=== PATIENT | female | born 1945 | race Caucasian/White ===

== ENCOUNTER 2019-10-01 11:49 | Outpatient (CLI) | payer MEDICARE, SELFPAY ==
--- NOTE | 2019-10-01 12:32 | ECG_ITS ---
Measurements Intervals [place] Rate: 93 P: 50 MN: 154 QRS: -28 QRSD: 87 T: 9 QT: 341 QTc: 424 Interpretive Statements SINUS RHYTHM BORDERLINE R WAVE PROGRESSION, ANTERIOR LEADS BORDERLINE T WAVE ABNORMALITY- ANT/INF LEADS BASELINE ARTIFACT- I, III, AVR, AVL, AVF BORDERLINE ECG Electronically Signed On 10-01-2019 12:57:26 CDT by Jose Antonio Yun D.O.
[2019-10-01 13:02] LABS: Basophils Absolute Auto 0.1 K/mm3 (0.0-0.1); Basophils Percent Auto 1.1 % (0.2-1.2); Eosinophils Absolute Auto 0.4 K/mm3 (0-0.3); Eosinophils Percent Auto 4.9 % (0-4.4); Hematocrit 40.6 % (37.0-47.0); Hemoglobin 13.9 g/dL (12.0-15.0); Immature Granulocyte Absolute 0.02 K/mm3 (0.00-0.031); Immature Granulocyte Percent A 0.2 % (0-0.5); Lymphocytes Absolute Auto 3.83 K/mm3 (0.9-3.2); Lymphocytes Percent Auto 43.9 % (18.3-44.2); Mean Corpuscular HGB Conc 34.2 g/dl (32-36); Mean Corpuscular Hemoglobin 30.4 pg (26-34); Mean Corpuscular Volume 88.8 fl (80-100); Mean Platelet Volume 9.4 fl (7.4-10.4); Monocytes Absolute Auto 0.6 K/mm3 (0.1-0.6); Monocytes Percent Auto 6.9 % (2.6-8.5); Neutrophils Absolute Auto 3.8 K/mm3 (1.3-6.7); Platelet Count Result 377 k/mm3 (150-375); Red Blood Count 4.57 M/mm3 (4.2-5.4); White Blood Count 8.7 K/mm3 (4.5-10.0)
[2019-10-01 13:16] LABS: Alanine Aminotransferase 16 U/L (4-35); Albumin Level 4.7 g/dL (3.5-5.1); Alkaline Phosphatase 123 U/L (38-126); Aspartate Amino Transferase 27 U/L (14-36); Bilirubin,Total 0.4 mg/dL (0.2-1.3); Blood Urea Nitrogen 10 mg/dL (7-17); Calcium 9.5 mg/dL (8.4-10.2); Carbon Dioxide 27 mmol/L (22-30); Chloride 106 mmol/L (98-107); Estimated Glomerular Filt Rate > 60; Glucose 97 mg/dL (65-105); Potassium 4.5 mmol/L (3.4-5.0); Sodium 140 mmol/L (137-145)
[2019-10-01 13:22] LABS: Prothrombin Time 12.8 Seconds (11.1-14.7)
[2019-10-01 13:23] LABS: Partial Thromboplastin Time 25.8 SECONDS (22.3-36.8)
== END 2019-10-01 11:50 | disposition home or self-care (01) ==
LOC: ANHSURGERY 11:51
PROVIDERS: PCP Family Medicine; Visit Provider Urology
DX: N81.3 Complete uterovaginal prolapse (principal); Z98.890 Other specified postprocedural states; Z79.899 Other long term (current) drug therapy; R94.31 Abnormal electrocardiogram [ECG] [EKG]; Z79.82 Long term (current) use of aspirin
CPT/HCPCS: 36415; 80053; 85025; 85610; 85730; 86850; 86900; 86901; 87077; 87086; 87088; 87186; 93005

== ENCOUNTER 2019-10-08 00:10 | Outpatient (CLI) | payer MEDICARE, SELFPAY ==
[2019-10-08 15:54] LABS: SARS-CoV-2 RNA PCR Negative
== END 2019-10-08 00:11 | disposition home or self-care (01) ==
LOC: ANHCOVIDDT 00:11
PROVIDERS: PCP Family Medicine; Visit Provider Urology
DX: Z01.812 Encounter for preprocedural laboratory examination (principal); Z20.828 Contact with and (suspected) exposure to other viral communicable diseases
CPT/HCPCS: 87635; C9803; U0003

== ENCOUNTER 2019-10-11 03:33 | Day surgery (SDC) | payer MEDICARE, SELFPAY ==
[2019-10-01 12:09] VITALS: BP 144/90; PULSE 100; RESP 20; TEMP 36.8; O2SAT 100; BMI 26.9
[2019-10-11] VITALS (15 sets, daily range): BP systolic 93–132; BP diastolic 41–81; PULSE 72–112; RESP 12–18; TEMP 36–36.8; O2SAT 95–100
--- NOTE | 2019-10-11 06:42 | PM.IMHP ---
H&P: HPI History of Present Illness Chief complaint: Stress Incontinence/ Uterine Prolapse Narrative: Jewell Lamar is a 73 year old female with known uterine prolapse which started worsening last year. She declines pessary. She has been evaluated by Dr. Coughlin. She agrees with supracervical hysterectomy with bilateral salpingectomy via davince assisted laparoscopy. Review of Systems Review of Systems: All systems reviewed & are unremarkable except as noted in HPI and below Constitutional: Constitutional: Reports no additional constitutional complaints Eyes: Eyes: Reports no additional eye complaints ENT: Reports Normal hearing present Cardiovascular: Cardiovascular: Denies chest pain and Denies dyspnea Respiratory: Respiratory: Reports no additional respiratory complaints, Reports cough, Denies dyspnea and Reports other Gastrointestinal: Gastrointestinal: Denies abdominal pain Genitourinary: Genitourinary: Reports no additional female genitourinary complaints and Reports as per HPI Psychiatric: Psychiatric: Reports no additional psychiatric complaints Endocrine: Endocrine: Reports no additional endocrine complaints Hematologic/Lymphatic: Hematologic/Lymphatic: Reports no additional hematologic/lymphatic complaints [facility] Past Medical History Medical History Pneumonia Procidentia of uterus Surgical History Surgical History H/O bilateral breast reduction surgery [facility] teeth removed Family History Family History Mother Cerebrovascular accident Grandparent Family history of malignant neoplasm Family history of lung cancer Social History Social History Smoking status: Never smoker Alcohol intake: current Meds Home Medications and Allergies Home Medications Medication Instructions Recorded Confirmed Type aspirin 81 mg tablet,delayed 81 mg PO DAILY 03/23/19 10/01/19 History release ibuprofen 200 mg PO Q6H PRN 10/01/19 10/01/19 History docusate sodium [Colace] 100 mg PO BID #60 cap 10/11/19 Rx hydrocodone-acetaminophen [[place]] 1 tablet PO Q4H PRN #20 tablet 10/11/19 Rx Allergies Allergy/AdvReac Type Severity Reaction Status Date / Time No Known Allergies Allergy Verified 10/11/19 11:22 Exam Const: General: healthy appearing, no acute distress, alert and awake Nutritional Appearance: well nourished Orientation/consciousness: oriented to person, oriented to place, oriented to time and patient oriented x3 HENMT: Head: normal to inspection Ears: hearing grossly normal bilaterally Eyes: General: appearance normal, both eyes and all related structures Neck: Neck: normal visual inspection Resp: Effort & Inspection: normal respiratory effort and other Auscultation: clear to auscultation bilaterally Cardio: Rate: regular rate Rhythm: regular rhythm GI: Inspection: normal to inspection GI Palp: Yes No hepatosplenomegaly present Rectal Exam: visual inspection normal : External Female Exam: normal external appearance and normal appearance of the urethra Speculum Exam - Vagina: other (cervix descends to introitus) Speculum Exam - Cervix: nontender Bimanual exam- vagina & uterus: normal bimanual exam, uterine size normal, bladder normal to palpation, consistency normal, non-tender and no cervical motion tenderness Bimanual Exam- Adnexa, other: no masses, normal and No adnexal tenderness OB/external & speculum: external exam normal Skin: General skin exam: normal color Neuro: General: oriented to person, oriented to place, oriented to time and patient oriented x3 Cranial nerves: Yes Normal hearing present Extrem: General: normal to inspection Psych: Appearance: grossly normal Mental Status: mental status grossly normal Attitude: cooperative Assessme
--- NOTE | 2019-10-11 07:22 | WPDHPUPDATE1 ---
History and Physical Update Update Date/Time: 10/11/19 07:22 History and Physical has been reviewed, including an updated exam of the patient. There are NO changes in the patient's condition. Risks, benefits, and alternatives have been discussed and questions answered. Patient agrees to proceed with procedure.
--- NOTE | 2019-10-11 10:51 | WPDANESEPPF ---
Anes - Initial Pre Proc Eval Procedure: Operation Date: 10/11/19 12:00 Proposed Procedures p Robotic Sacrocolpopexy, Urethral Sling - Pepe Coughlin MD s Robotic Assisted Supracervical Hysterectomy With Bilateral Salpingo-Oophorectomy - Benjamin Kumar MD Date/Time: 10/11/19 10:51 Surgeon: Pepe Coughlin MD Pre Op Diagnosis: Stress Incontinence/ Uterine Prolapse Patient Data Age: 73 Gender: F Height: 5 ft 1.5 in Weight: 65.6 kg Last Vital Signs Temp 36.8 C 10/01/19 12:09 Pulse 100 10/01/19 12:09 Resp 20 10/01/19 12:09 BP 144/90 H 10/01/19 12:09 Pulse Ox 100 10/01/19 12:09 Allergies Allergy/AdvReac Type Severity Reaction Status Date / Time No Known Allergies Allergy Verified 10/01/19 12:05 Home Medications Medication Instructions Recorded Confirmed Type aspirin 81 mg tablet,delayed 81 mg PO DAILY 03/23/19 10/01/19 History release ibuprofen 200 mg PO Q6H PRN 10/01/19 10/01/19 History Patient hx anesthesia problems: none Family hx anesthesia problems: none PMFSH Past Medical History Medical History Pneumonia Procidentia of uterus Surgical History Surgical History H/O bilateral breast reduction surgery [place] teeth removed Family History Family History Mother Cerebrovascular accident Grandparent Family history of malignant neoplasm Family history of lung cancer Social History Social History Smoking status: Never smoker Alcohol intake: current Anes - Eval Final PreProcedure Day of Procedure 10/11/19 10:51 Patient weight: overweight Heart: regular rate and rhythm Lungs: clear to auscultation Airway: Mallampati scale class II Neurological: alert and oriented Last oral intake: >/= 8 hours ASA classification: II Emergent: no Anesthetic plan: proceed Anesthesia type and monitoring: general ETT and standard monitoring Informed Consent: The patient's anesthetic plan and its attendant risks and benefits were discussed with the patient/family/POA. Questions were solicited and answers provided to the satisfaction of the patient/family/POA.
[2019-10-11] MEDS: LACTATED RINGERS 1,000 ML 30 ML IV CONT ×2 (11:00→15:06)
[2019-10-11] MEDS: ceFAZolin 2 GM/D5W 50 ML 2 GM/50 ML BAG IVPB (12:03)
[2019-10-11] MEDS: metroNIDAZOLE 500 MG/ISO 100ML 500 MG/100 ML BAG 100 MG IVPB ×2 (12:15→21:19)
[2019-10-11] MEDS: BUPIVACAINE/EPINEPHRINE 0.25% 50 ML VIAL INFILTRATE (12:47)
--- NOTE | 2019-10-11 13:22 | PM.PROC ---
Procedure Note - Detailed Date of procedure: 10/11/19 Pre-op diagnosis: Stress Incontinence/ Uterine Prolapse Post-op diagnosis: same Procedure performed: Da tessa assisted laparoscopic supracervical hysterectomy with bilateral salpingo=oophorectomy. Description of procedure: Informed consent was obtained patient was taken to the operating room and general endotracheal anesthesia was administered. She was placed in low lithotomy position and prepped and draped in sterile fashion. Attention was turned to the vagina speculum was inserted single-tooth tenaculum placed on the anterior lip of the cervix and an acorn uterine manipulator was placed into the cervical canal. Dr. Coughlin placed the robotic ports after the patient was placed in Trendelenburg position. Attention was turned to the surgery console and attention was turned to the right round ligament which was cauterized and incised the anterior leaf of the broad ligament was further incised anteriorly to the vesicouterine peritoneum. The bladder was dissected from the lower uterine segment on the right side. Attention was then turned to the right infundibulopelvic ligament which was cauterized and incised the ascending uterine vessels were then cauterized on the right side. The uterine arteries were skeletonized. The uterine arteries were then cauterized on the right side. Attention was then turned to the left round ligament which was cauterized in the middle of the round ligament and incised the anterior leaf of the broad ligament was further dissected anteriorly to the vesicouterine peritoneum. The bladder was then dissected from the lower uterine segment. Attention was then turned to the left infundibulopelvic ligament which was cauterized and incised and the fallopian tube in ascending uterine vessels were then cauterized. The uterine arteries were skeletonized. The uterine arteries were cauterized. The cervix was then cauterized from the uterus. hemostasis was obtained at the cervical bed with cautery. EBL 5 cc. Patient tolerated procedure well. Anesthesia: GETA Surgeon: Benjamin Kumar MD Estimated blood loss (mL): 5 IV fluids (mL): 400 Urine output (mL): 275 Drains: No Packing: No Pathology: yes (Uterus with right and left fallopian tubes and ovaries) Complications: No immediate complications Condition: stable Disposition: other (Pt remained in OR for Dr. Tejeda procedure) Findings: Uterus normal appearing, bilateral fallopian tubes normal appearing, atretic normal appearing ovaries bilaterally.
[2019-10-11] MEDS: KETOROLAC 30 MG/ML VIAL (*BKC) IV PUSH (14:42)
--- NOTE | 2019-10-11 14:52 | P.OP_ITS ---
Procedure Note - Detailed Date of procedure: 10/11/19 Pre-op diagnosis: Uterine Prolapse Uterine prolapse Post-op diagnosis: same Procedure performed: Robotic assisted laparoscopic sacral colpopexy Cystoscopy Description of procedure: She understood the risks of bleeding, infection, damage to surrounding organs, bowel injury, bowel obstruction, recurrence of prolapse, persistent or recurrent stress incontinence, mesh related complications including exposure and extrusion, diskitis, postoperative voiding dysfunction including incontinence and retention, hip and leg pain, dyspareunia, and she agrees to proceed. There was no stress incontiennce on urodynamics. She opted not to have a incontinence procedure understanding she may have worsening or denovo stress incontinence She was correctly identified and informed consent was obtained. She was brought to the operating room. She was given general anesthesia. She was placed in the dorsal lithotomy position. All pressure points were padded. She was given appropriate perioperative antibiotics. Time-out performed. I anesthetized the skin 3 fingerbreadths cephalad to the umbilicus. I incised the skin. I dissected down to locate the fascia. I grasped the fascia with Tristin clamps. I entered the fascia sharply. I placed Vicryl sutures for later fascial closure. I placed a midline trocar. Under direct vision 2 additional trocars were placed on the right and left upper quadrant. She was placed in steep Trendelenburg and the robot was docked. Her soda fountain manager performed the portion of the procedure and left the specimen and a sac which was extracted. I then sat at the console. With the Sizer in the vagina I created a plane on the anterior and posterior vaginal wall. This was done for several cm taking great care not to injure the vagina, bladder, or rectum. I introduced the mesh into the abdomen. I sewed the anterior leaflet of mesh on the anterior vaginal wall and posterior leaf of the mesh on the posterior vaginal wall with several Audubon- Chas sutures taking great care not to go through and through. I then reflected the colon laterally. I opened up the posterior peritoneum over the sacral promontory. I carried this into the cul-de-sac. I kept the ureters lateral. I freed up the edges. I located the anterior longitudinal ligament of the sacrum. I tensioned the mesh appropriately. I did a vaginal exam to ensure prolapse reduction without undue tension. I then sewed the proximal leaflet of mesh onto the ligament with 3 sutures of 2 0 Audubon-Chas. Next the mass was meticulously retroperitonealized with a running 2 0 Monocryl suture. I allowed the colon to go back into its normal anatomic location. There is no signs of any impingement or stricturing. The abdomen was exited. Fascia was closed. Skin was closed with Monocryl and glue. I then performed cystoscopy. The bladder is examined. There was no tumors, stones, foreign bodies, surgical artifact. Both ureters were seen to excrete clear yellow urine. There is no surgical artifact in the urethra. Catheter was then replaced. She was awakened and transferred to the PACU in stable condition. Anesthesia: GLMA Surgeon: Pepe Coughlin MD Drains: Yes (Stover catheter) Packing: Yes Complications: No immediate complications Condition: stable Disposition: PACU
--- NOTE | 2019-10-11 16:58 | PC.NURSE ---
This patient, Jewell Lamar, was received from PACU on 10/11/19 at 1658. Patient/family oriented to unit policies and routines
[2019-10-11] MEDS: KCL 20 MEQ/D5/0.45% SOD CHL 1,000 ML 100 ML IV CONT (17:20)
[2019-10-11] MEDS: MORPHINE SULFATE 2 MG/ML INJ IV PUSH ×2 (17:23→20:23)
[2019-10-11] MEDS: ACETAMINOPHEN 325 MG TABLET 650 MG PO (23:08)
[2019-10-12] MEDS: ACETAMINOPHEN 325 MG TABLET 650 MG PO ×2 (04:56→10:46)
[2019-10-12] MEDS: metroNIDAZOLE 500 MG/ISO 100ML 500 MG/100 ML BAG 100 MG IVPB ×2 (04:57→13:11)
[2019-10-12 06:42] VITALS: BP 114/64; PULSE 117; RESP 16; TEMP 37.3; O2SAT 93
[2019-10-12 07:35] VITALS: BP 108/62; PULSE 105; RESP 18; TEMP 37.5; O2SAT 93
--- NOTE | 2019-10-12 07:45 | WPDANESPN ---
Anes - Prog Note Post-Op Date/Time: 10/12/19 07:45 Cardiovascular status: normal Respiratory status: normal Airway patency: baseline Mental status: baseline Post-Op hydration status: normal Vital Signs: Last Vital Signs Temp 37.3 C 10/12/19 06:42 Pulse 117 H 10/12/19 06:42 Resp 16 10/12/19 06:42 BP 114/64 10/12/19 06:42 Pulse Ox 93 10/12/19 06:42 I/O: Intake & Output 10/11/19 10/11/19 10/12/19 15:59 23:59 07:59 Intake Total 0 1300 Output Total 275 825 300 Balance -275 475 -300 Post-procedural complaints: none Patient Feedback: Patient satisfied with anesthetic care.
[2019-10-12] MEDS: DOCUSATE SODIUM 100 MG CAPSULE PO (08:40)
[2019-10-12] MEDS: ENOXAPARIN 30 MG/0.3 ML SYRINGE SUB-Q (08:41)
[2019-10-12 09:04] LABS: Basophils Percent Auto 0.1 % (0.2-1.2); Hematocrit 30.7 % (37.0-47.0); Hemoglobin 10.4 g/dL (12.0-15.0); Immature Granulocyte Percent A 0.6 % (0-0.5); Lymphocytes Absolute Auto 2.92 K/mm3 (0.9-3.2); Lymphocytes Percent Auto 16.4 % (18.3-44.2); Mean Corpuscular HGB Conc 33.9 g/dl (32-36); Mean Corpuscular Hemoglobin 30.2 pg (26-34); Mean Corpuscular Volume 89.2 fl (80-100); Mean Platelet Volume 9.2 fl (7.4-10.4); Monocytes Absolute Auto 0.9 K/mm3 (0.1-0.6); Monocytes Percent Auto 5.2 % (2.6-8.5); Neutrophils Absolute Auto 13.9 K/mm3 (1.3-6.7); Neutrophils Percent Auto 77.7 % (45.5-73.1); Platelet Count Result 343 k/mm3 (150-375); Red Blood Count 3.44 M/mm3 (4.2-5.4); Red Cell Distribution Width 12.9 % (11.5-14.5); White Blood Count 17.8 K/mm3 (4.5-10.0)
[2019-10-12 10:00] VITALS: PULSE 104; O2SAT 94
--- NOTE | 2019-10-12 22:33 | PM.GYNPNOP ---
MAILROOM COORDINATOR - A/P Assessment and plan (1) Status post hysterectomy: Code(s): Z90.710 - Acquired absence of both cervix and uterus Status: Acute Assessment and Plan: POD1s/p robotic supracervical hysterectomy and BSO, sacral colpopexy- she is doing well, had adequate pain control. Will check CBC. Encourage ambulation. Advance diet to regular. Anticipate discharge home later today once ambulating. Discharge precautions discussed. Postoperative Procedures: Procedures Operation Date: 10/11/19 12:00 Actual Procedures Side Surgeon p Robotic Sacrocolpopexy Pepe Coughlin MD s Robotic Assisted Supracervical Hysterectomy With Bilateral Salpingo-Oophorectomy Bilateral Benjamin Kumar MD Time Spent With Patient Time: Total time spent is greater than 50% in coordination of care (as documented) at patient's floor/unit and/or counseling patient: Time with patient: less than 15 minutes MAILROOM COORDINATOR- PN:Subj Post-Op Subjective Date/time seen: 10/12/19 Seen at 0720 She reports adequate pain control. She tolerated liquid. No flatus. Has not ambulated. No chest pain, SOB, or leg pain. Review of Systems Review of Systems: All systems reviewed & are unremarkable except as noted in HPI and below Cardiovascular: Cardiovascular: Reports no additional cardiovascular complaints Respiratory: Respiratory: Reports no additional respiratory complaints Gastrointestinal: Gastrointestinal: Reports belching, Denies nausea and Denies vomiting Genitourinary: Genitourinary: Reports no additional female genitourinary complaints Musculoskeletal: Musculoskeletal: Reports no additional musculoskeletal complaints Exam Const: General: comfortable and no acute distress Orientation/consciousness: oriented to person, oriented to place and oriented to time Resp: Auscultation: clear to auscultation bilaterally Cardio: Rate: regular rate Rhythm: regular rhythm GI: GI Palp: Yes Soft to palpation Auscultation: normal bowel sounds Other: hypoactive bowel sounds, nondistended, incisions without drainage or induration Neuro: General: oriented to person, oriented to place and oriented to time Extrem: General: no calf tenderness Psych: Mental Status: mental status grossly normal MAILROOM COORDINATOR - PN: Obj Data Vital Signs Vital Signs: Vital Signs - 24 hr 10/11/19 23:10 10/12/19 06:42 10/12/19 07:35 Temperature 98.2 F 99.1 F 99.5 F Pulse Rate 104 H 117 H 105 H Respiratory Rate 14 16 18 Blood Pressure 95/52 L 114/64 108/62 Pulse Oximetry 95 93 93 10/12/19 10:00 Temperature Pulse Rate 104 H Respiratory Rate Blood Pressure Pulse Oximetry 94 Intake/Output Intake/Output: Intake & Output 10/09/19 10/10/19 10/11/19 10/12/19 23:59 23:59 23:59 23:59 Intake Total 1300 150 Output Total 1100 650 Balance 200 -500 Labs CBC & Chem 7: 10/12/19 08:53 Labs: Laboratory Results - last 24 hr 10/12/19 08:53 WBC 17.8 H RBC 3.44 L Hgb 10.4 L D Hct 30.7 L MCV 89.2 MCH 30.2 MCHC 33.9 RDW 12.9 Plt Count 343 MPV 9.2 Immature Gran % (Auto) 0.6 H Neut % (Auto) 77.7 H Lymph % (Auto) 16.4 L [place] % (Auto) 5.2 Eos % (Auto) 0.0 Baso % (Auto) 0.1 L Lymph # (Auto) 2.92 [place] # (Auto) 0.9 H Eos # (Auto) 0.0 Baso # (Auto) 0.0 Abs Immat Gran (auto) 0.10 H Absolute Neuts (auto) 13.9 H Absolute Nucleated RBC 0.0 Nucleated RBC % 0.0
--- NOTE | 2019-10-12 22:41 | PM.DS ---
DS: Admitting Diagnosis Admitting Diagnosis Admitting Diagnosis: Uterine prolapse DS: Discharge Diagnosis Discharge Diagnosis (1) Procidentia of uterus: Code(s): N81.3 - Complete uterovaginal prolapse Status: Acute DS: Summary Time Spent with Patient Time attestation: Total time spent providing and/or coordinating discharge services: Exam Const: General: cooperative and comfortable Resp: Effort & Inspection: normal respiratory effort Auscultation: clear to auscultation bilaterally Cardio: Rate: regular rate Rhythm: regular rhythm GI: Other: nondistended, hypoactive bowel sounds. Extrem: Other: nontender Psych: Affect: normal affect DS: Data Data Completed and Pending Pending studies at discharge: Pending at discharge 10/11/19 13:11 Surgical [PTH] Routine Labs on day of discharge: Labs from last 24 hours 10/12/19 08:53 WBC 17.8 H RBC 3.44 L Hgb 10.4 L D Hct 30.7 L MCV 89.2 MCH 30.2 MCHC 33.9 RDW 12.9 Plt Count 343 MPV 9.2 Immature Gran % (Auto) 0.6 H Neut % (Auto) 77.7 H Lymph % (Auto) 16.4 L [place] % (Auto) 5.2 Eos % (Auto) 0.0 Baso % (Auto) 0.1 L Lymph # (Auto) 2.92 [place] # (Auto) 0.9 H Eos # (Auto) 0.0 Baso # (Auto) 0.0 Abs Immat Gran (auto) 0.10 H Absolute Neuts (auto) 13.9 H Absolute Nucleated RBC 0.0 Nucleated RBC % 0.0 Discharge Plan Discharge Patient Disposition: Home, Self-Care Discharge Instructions: No lifting >20lb, exercise for 6 weeks No tub bath or pool for 2 weeks Instructed to call for fever, chills, chest pain, shortness of breath. Patient Instructions: Laparoscopic Hysterectomy (DC) Follow-up/Referrals: Pepe Coughlin MD [Physician] - 6 Weeks Benjamin Kumar MD [Physician] - 1 Week Discharge Medications: New hydrocodone-acetaminophen [[place]] 5-325 mg tablet 1 tablet PO Q4H PRN (Reason: pain) Qty: 20 RF: 0 docusate sodium [Colace] 100 mg capsule 100 mg PO BID Qty: 60 RF: 0 Held aspirin 81 mg tablet,delayed release (DR/EC) 81 mg PO DAILY RF: 0 Hold Instructions: Resume on 10/15/19. ibuprofen 200 mg Tablet 200 mg PO Q6H PRN (Reason: pain) RF: 0 Hold Instructions: Resume on 10/15/19. Primary Care Provider: KirillCharli Discharge Date/Time: 10/12/19 14:33 Attending physician on admission: Pepe Coughlin
== END 2019-10-12 14:33 | disposition home or self-care (01) ==
LOC: ANHSURGERY 14:55 → ANHOB2 16:50
PROVIDERS: Obstetrics & Gynecology; PCP Family Medicine; Visit Provider Urology
PROC: (CPT 57425; principal; 2019-10-11 12:00)
PROC: 0UT94ZZ Resection of Uterus, Percutaneous Endoscopic Approach (ICD-10-PCS; CPT 57425; 2019-10-11 12:00)
DX: N81.3 Complete uterovaginal prolapse (principal); N39.3 Stress incontinence (female) (male); N32.81 Overactive bladder; N80.0 Endometriosis of uterus; D25.1 Intramural leiomyoma of uterus
CPT/HCPCS: 58542; 57425; S2900; 36415; 85025; 88307; 99199; A9270; C1781; J0131; J0330; J0690; J1100; J1170; J1650; J1885; J2250; J2270; J2405; J2710; J3010; J3480; J7030; J7120

== ENCOUNTER 2021-05-29 01:23 | Day surgery (SDC) | payer MEDICARE, SELFPAY ==
[2021-05-16 16:27] VITALS: BMI 26.6
[2021-05-29 09:27] VITALS: BP 132/81; PULSE 100; RESP 18; TEMP 36.3; O2SAT 100
[2021-05-29] MEDS: LACTATED RINGERS 1,000 ML 150 ML IV CONT (09:30)
--- NOTE | 2021-05-29 09:54 | P.PNAN_ITS ---
Anes - Initial Pre Proc Eval Procedure: Operation Date: 05/29/21 10:45 Proposed Procedures p Colonoscopy - Sotero Lainez MD Date/Time: 05/29/21 09:54 Surgeon: Sotero Lainez MD Pre Op Diagnosis: positive cologuard Patient Data Age: 75 Gender: F Height: 1.56 m Weight: 64.7 kg Last Vital Signs Temp 97.3 F L 05/29/21 09:27 Pulse 100 05/29/21 09:27 Resp 18 05/29/21 09:27 BP 132/81 05/29/21 09:27 Pulse Ox 100 05/29/21 09:27 Allergies Allergy/AdvReac Type Severity Reaction Status Date / Time No Known Allergies Allergy Verified 05/29/21 09:26 Home Medications Medication Instructions Recorded Confirmed Type aspirin 81 mg tablet,delayed 81 mg PO DAILY 03/23/19 05/16/21 History release ibuprofen 200 mg PO Q6H PRN 10/01/19 05/16/21 History docusate sodium [Colace] 100 mg PO PRN PRN 05/16/21 05/16/21 History Patient hx anesthesia problems: none Family hx anesthesia problems: none Results Review: All pre-operative results and documents have been reviewed as part of the pre-operative evaluation. [facility] Past Medical History Medical History Pneumonia Procidentia of uterus Surgical History Surgical History (Updated 11/17/19 @ 23:30 by Benjamin Kumar MD) H/O bilateral breast reduction surgery History of sacrocolpopexy Status post laparoscopic supracervical hysterectomy [place] teeth removed Family History Family History Mother Cerebrovascular accident Grandparent Family history of malignant neoplasm Family history of lung cancer Social History Social History Smoking status: Never smoker Alcohol intake: never Substance use: never Substance use type: does not use Living arrangements: with family Additional living arrangements comments: son lives with her and her spouse Spiritual care concerns: No Anes - Eval Final PreProcedure Day of Procedure 05/29/21 09:54 Patient weight: normal Heart: regular rate and rhythm Lungs: clear to auscultation Airway: Mallampati scale class II Neurological: alert and oriented Last oral intake: >/= 8 hours ASA classification: II Emergent: no Anesthetic plan: proceed Anesthesia type and monitoring: general GIVS and standard monitoring Results Review: All pre-operative results and documents have been reviewed as part of the pre-operative evaluation. Informed Consent: The patient's anesthetic plan and its attendant risks and benefits were discussed with the patient/family/POA. Questions were solicited and answers provided to the satisfaction of the patient/family/POA.
--- NOTE | 2021-05-29 10:23 | PM.HPGS ---
History of Present Illness History of Present Illness Consent: Risks, benefits, and alternatives have been discussed and questions answered. Patient agrees to proceed with procedure. Chief complaint: positive cologuard Narrative: Jewell Lamar is a 75 year old female here for first colonoscopy, had + cologuard, denies lower gi symptoms. Review of Systems Constitutional: Constitutional: Denies headache(s) and Denies weakness Eyes: Eyes: Denies blurry vision ENT: Reports Normal hearing present, Denies headache(s) and Denies neck pain Cardiovascular: Cardiovascular: Denies chest pain and Denies dyspnea Respiratory: Respiratory: Denies dyspnea Gastrointestinal: Gastrointestinal: Reports no additional gastrointestinal complaints Genitourinary: Genitourinary: Denies dysuria Musculoskeletal: Musculoskeletal: Denies neck pain Integumentary/Breasts: Skin/Breast: Denies dry skin Neurologic: Reports Normal hearing present, Denies headache(s) and Denies weakness Psychiatric: Psychiatric: Denies anxiety Endocrine: Endocrine: Denies change in body appearance Hematologic/Lymphatic: Hematologic/Lymphatic: Denies easy bleeding Allergic/Immunologic: Allergic/Immunologic: Denies urticaria PMFSH Past Medical History Medical History (Updated 05/29/21 @ 10:24 by Sotero Lainez MD) Pneumonia Positive colorectal cancer screening using Cologuard test Procidentia of uterus Surgical History Surgical History (Updated 11/17/19 @ 23:30 by Benjamin Kumar MD) H/O bilateral breast reduction surgery History of sacrocolpopexy Status post laparoscopic supracervical hysterectomy [place] teeth removed Family History Family History Mother Cerebrovascular accident Grandparent Family history of malignant neoplasm Family history of lung cancer Social History Social History Smoking status: Never smoker Alcohol intake: never Substance use: never Substance use type: does not use Living arrangements: with family Additional living arrangements comments: son lives with her and her spouse Spiritual care concerns: No Meds Home Medications and Allergies Home Medications Medication Instructions Recorded Confirmed Type aspirin 81 mg tablet,delayed 81 mg PO DAILY 03/23/19 05/16/21 History release ibuprofen 200 mg PO Q6H PRN 10/01/19 05/16/21 History docusate sodium [Colace] 100 mg PO PRN PRN 05/16/21 05/16/21 History Allergies Allergy/AdvReac Type Severity Reaction Status Date / Time No Known Allergies Allergy Verified 05/29/21 09:26 Vital Signs Vital Signs - 24 hr 05/29/21 09:27 Temperature 97.3 F L Pulse Rate 100 Respiratory Rate 18 Blood Pressure 132/81 Pulse Oximetry 100 Exam Const: General: comfortable and no acute distress HENMT: General nose exam: Normal nares present Eyes: General: appearance normal, both eyes and all related structures Neck: Neck: no JVD Resp: Auscultation: clear to auscultation bilaterally Cardio: Rate: regular rate Rhythm: regular rhythm GI: Inspection: non-distended GI Palp: Yes Soft to palpation Skin: General skin exam: normal color Neuro: General: gait normal Speech: normal speech Extrem: General: normal to inspection Psych: Mental Status: mental status grossly normal Assessment and Plan Assessment and plan (1) Positive colorectal cancer screening using Cologuard test: Code(s): R19.5 - Other fecal abnormalities Status: Acute Assessment and Plan: colonoscopy
[2021-05-29 10:45] VITALS: BP 110/56; PULSE 99; RESP 19; O2SAT 99
[2021-05-29 10:55] VITALS: BP 118/72; PULSE 96; RESP 13; O2SAT 100
[2021-05-29 11:05] VITALS: BP 125/67; PULSE 94; RESP 13; O2SAT 100
== END 2021-05-29 11:20 | disposition home or self-care (01) ==
PROVIDERS: PCP Family Medicine; Visit Provider Internal Medicine Gastroenterology
PROC: 0DJD8ZZ Inspection of Lower Intestinal Tract, Via Natural or Artificial Opening Endoscopic (ICD-10-PCS; CPT 45378; principal; 2021-05-29 10:45)
DX: R19.5 Other fecal abnormalities (principal); D12.2 Benign neoplasm of ascending colon; K57.30 Diverticulosis of large intestine without perforation or abscess without bleeding; K64.8 Other hemorrhoids
CPT/HCPCS: 45385; 88305; J2704; J7120